=== PATIENT | male | born 1945 | race African-American/Black ===

== ENCOUNTER 2020-07-04 10:39 | Inpatient (IN) | payer BC, MEDICARE ==
[~2020-07-04] VITALS: Ht 190.5 cm; Wt 77.2 kg
[2020-07-04] MEDS ORDERED: SODIUM CHLORIDE 0.9% 1,000 ML IV ONE (11:01)
[2020-07-04 11:29] LABS: BASOPHILS % 0.7 % (0.0-2.0); EOSINOPHILS % 3.4 % (0.0-5.0); HEMATOCRIT. 31.7 % (42.0-52.0); HEMOGLOBIN. 10.9 g/dL (14.0-18.0); LYMPHOCYTES % 11.7 % (20.0-50.0); MEAN CORPUSCULAR HEMOGLOBIN 29.9 pg (28.0-32.0); MEAN CORPUSCULAR VOLUME 86.8 fL (80.0-94.0); MEAN PLATELET VOLUME 8.1 fl (7.4-10.4); MONOCYTES % 11.3 % (2.0-8.0); NEUTROPHILS % 72.9 % (40.0-76.0); PLATELET 169 x1000/uL (130-400); RED BLOOD CELL COUNT 3.65 mill/uL (4.7-6.1); RED CELL DISTRIBUTION WIDTH 14.4 % (11.6-14.6)
[2020-07-04 11:33] LABS: CHLORIDE 115 mEq/L (98-107)
[2020-07-04 11:38] LABS: INR 1.1; PARTIAL THROMBOPLASTIN TIME 28.5 sec (23.4-31.0); PROTHROMBIN TIME 11.6 sec (9.6-11.0)
[2020-07-04] MEDS ORDERED: SODIUM BICARBONATE 8.4% 1 MEQ/ML 50ML SYR IV ONE (12:00)
[2020-07-04] MEDS ORDERED: SODIUM POLYSTYRENE SULFONATE 15 G/60 ML BOT PO ONE (12:00)
[2020-07-04] MEDS ORDERED: ALBUTEROL (0.083%) 2.5MG/3ML NEB HHN ONE (12:00)
[2020-07-04] MEDS ORDERED: ASPIRIN 325MG EC TABLET PO ONE (12:30)
[2020-07-04] MEDS ORDERED: SODIUM POLYSTYRENE SULFONATE 15 G/60 ML BOT PO SCH (13:30)
[2020-07-04 13:50] VITALS: BP 122/55
[2020-07-04 14:00] VITALS: BP 122/55
[2020-07-04] MEDS ORDERED: GUAIFENESIN 200MG/10ML SUGAR FREE UDC PO PRN (14:45)
[2020-07-04] MEDS ORDERED: DIPHENHYDRAMINE 50MG/ML VIAL IV PRN (14:45)
[2020-07-04] MEDS ORDERED: ACETAMINOPHEN 325MG TABLET PO PRN ×2 (14:45)
[2020-07-04] MEDS ORDERED: DEXTROSE 50% WATER 50ML SYRINGE IV PRN (14:45)
[2020-07-04] MEDS ORDERED: CLONIDINE 0.1MG TABLET PO PRN (14:45)
[2020-07-04] MEDS ORDERED: ZOLPIDEM TARTRATE 5MG TABLET PO PRN (14:45)
[2020-07-04] MEDS ORDERED: ONDANSETRON HCL 4MG/2ML INJ IV PRN (14:45)
[2020-07-04] MEDS ORDERED: MAGNESIUM/ALUMINUM HYDROXIDE/SIMETHICONE 30ML UDC PO PRN (14:45)
[2020-07-04] MEDS ORDERED: ATOR40TA70 MT (14:58)
[2020-07-04] MEDS ORDERED: LISI2.5T47 MT (14:58)
[2020-07-04] MEDS ORDERED: AMLO2.5T45 MT (14:58)
[2020-07-04] MEDS ORDERED: TAMS-11 PO (14:58)
[2020-07-04] MEDS ORDERED: GLIP5TAB12 MT (14:58)
[2020-07-04] MEDS ORDERED: ENOXAPARIN 40MG/0.4ML SYR SUBCUT SCH (15:00)
[2020-07-04 16:00] VITALS: BP 118/68
[2020-07-04] MEDS: ENOXAPARIN 30MG/0.3ML SYR SUBCUT SCH (16:50)
[2020-07-04] MEDS: BLOOD SUGAR DIAGNOSTIC STRIP TEST SCH ×2 (17:30→20:40)
[2020-07-04] MEDS: CLOPIDOGREL 75MG TABLET PO SCH (17:34)
[2020-07-04] MEDS: INSULIN LISPRO 100 UNITS/ML SUBCUT SCH ×2 (17:35→20:40)
[2020-07-04 20:00] VITALS: BP 131/67
[2020-07-04] MEDS: SODIUM CHLORIDE 0.9% INJ 3ML FLUSH IVF SCH (20:40)
[2020-07-05] VITALS: BP 137/78
[2020-07-05 04:00] VITALS: BP 128/61
[2020-07-05] MEDS: INSULIN LISPRO 100 UNITS/ML SUBCUT SCH ×4 (06:03→20:43)
[2020-07-05] MEDS: BLOOD SUGAR DIAGNOSTIC STRIP TEST SCH ×4 (06:03→20:43)
[2020-07-05] MEDS: SODIUM CHLORIDE 0.9% INJ 3ML FLUSH IVF SCH ×3 (06:13→20:46)
[2020-07-05 08:00] VITALS: BP 130/66
[2020-07-05] MEDS: ASPIRIN 81MG EC TABLET PO SCH (08:46)
[2020-07-05] MEDS: CLOPIDOGREL 75MG TABLET PO SCH (08:46)
[2020-07-05 12:00] VITALS: BP 141/60
[2020-07-05 16:00] VITALS: BP 139/57
[2020-07-05] MEDS: ENOXAPARIN 30MG/0.3ML SYR SUBCUT SCH (17:02)
[2020-07-05 20:00] VITALS: BP 144/68
[2020-07-06] VITALS: BP 142/66
[2020-07-06 04:00] VITALS: BP 134/72
[2020-07-06] MEDS: INSULIN LISPRO 100 UNITS/ML SUBCUT SCH ×2 (06:11→12:09)
[2020-07-06] MEDS: BLOOD SUGAR DIAGNOSTIC STRIP TEST SCH ×2 (06:12→12:09)
[2020-07-06] MEDS: SODIUM CHLORIDE 0.9% INJ 3ML FLUSH IVF SCH (06:13)
[2020-07-06 08:00] VITALS: BP 112/84
[2020-07-06] MEDS: CLOPIDOGREL 75MG TABLET PO SCH (08:25)
[2020-07-06] MEDS: ASPIRIN 81MG EC TABLET PO SCH (08:25)
[2020-07-06 12:42] VITALS: BP 135/67
== END 2020-07-06 13:15 | disposition home or self-care (01) | DRG 65 ==
LOC: ER 11:06 → 8WST 12:15 → EDBEDREQTM 12:18 → EDBEDREQ 12:18 → ENRESERV 12:29 → ER 13:31
PROVIDERS: ADMIT Internal Medicine; ATTEND Internal Medicine
DX: I63.9 Cerebral infarction, unspecified (principal); J98.11 Atelectasis; G81.94 Hemiplegia, unspecified affecting left nondominant side; E87.5 Hyperkalemia; I10 Essential (primary) hypertension; E11.9 Type 2 diabetes mellitus without complications; E78.00 Pure hypercholesterolemia, unspecified; I44.0 Atrioventricular block, first degree; R29.810 Facial weakness; Z83.3 Family history of diabetes mellitus; Z79.02 Long term (current) use of antithrombotics/antiplatelets; Z79.82 Long term (current) use of aspirin; N28.9 Disorder of kidney and ureter, unspecified
CPT/HCPCS: 36415; 70551; 71045; 80053; 80061; 82962; 83036; 83880; 84484; 85025; 93005; 93306; 93970; 94640; 97162; 97166; 99285; J1650; J1815; J3490; J7030